=== PATIENT | male | born 1980 | race African-American/Black ===

== ENCOUNTER 2016-07-01 13:46 | Emergency (ER) | payer SELFPAY ==
[~2016-07-01] VITALS: Ht 185.4 cm; Wt 93.8 kg
[~2016-07-01 13:46] MED LIST: AFRIN,GENASAL D15 ML BOTH NARES; AMOXICILLIN500 M1 PO; AMOXICILLIN500 MG PO; CLEOCIN300 MG PO; MOTRIN800 MG PO; MUCUS ER600 MG PO; NAPROSYN500 MG PO; NORCO 5/3251 TABLET PO; PEPCID20 MG PO; PERCOCET 5/31 TABLET PO; PREDNISONE20 MG PO; REGLAN10 MG PO; ROBITUSSIN NIG118 ML PO; TYLENOL REGULA325 MG PO
[2016-07-01 13:55] VITALS: BP 117/89
[2016-07-01] MEDS ORDERED: KEFLEX500 MG PO (14:32)
[2016-07-01] MEDS ORDERED: NAPROSYN500 MG PO (14:32)
[2016-07-01] MEDS ORDERED: BACTRIM,SEPT1 TABLET PO (14:32)
== END 2016-07-01 15:12 | disposition home or self-care (01) ==
LOC: EME 13:46
DX: L02.01 Cutaneous abscess of face (principal); F17.210 Nicotine dependence, cigarettes, uncomplicated
CPT/HCPCS: 99281; 99283

== ENCOUNTER 2018-01-23 12:33 | Emergency (ER) | payer SELFPAY ==
[~2018-01-23] VITALS: Ht 185.4 cm; Wt 91.8 kg
[~2018-01-23 12:33] MED LIST changes: +BACTRIM,SEPT1 TABLET PO; +KEFLEX500 MG PO
[2018-01-23] MEDS ORDERED: ULTRAM50 MG PO (14:28)
[2018-01-23] MEDS ORDERED: PEN-VEE K,VEET500 MG PO (14:28)
[2018-01-23] MEDS ORDERED: MOTRIN800 MG PO (14:28)
[2018-01-23 14:46] VITALS: BP 122/73
== END 2018-01-23 14:46 | disposition home or self-care (01) ==
LOC: EME 12:33
DX: K08.89 Other specified disorders of teeth and supporting structures (principal); F17.200 Nicotine dependence, unspecified, uncomplicated
CPT/HCPCS: 99281; 99283

== ENCOUNTER 2018-01-29 14:18 | Emergency (ER) | payer SELFPAY ==
[~2018-01-29] VITALS: Ht 185.4 cm; Wt 89.2 kg
[~2018-01-29 14:18] MED LIST changes: +PEN-VEE K,VEET500 MG PO; +ULTRAM50 MG PO
[2018-01-29 14:47] LABS: HEMATOCRIT 41.4 % (38.0-50.0); HEMOGLOBIN 13.9 G/DL (12.5-16.6); MCH 31.4 PG (29.0-34.0); MCHC 33.6 G/DL (30.0-36.0); MCV 93.5 FL (86-99); PLATELET COUNT 343 K/uL (156-360); RBC DIS.WIDTH-CV 12.5 % (11.8-14.6); RBC DIS.WIDTH-SD 43.1 % (39-53); RED BLOOD COUNT 4.43 M/uL (4.00-5.50); WHITE BLOOD COUNT 6.8 K/uL (4.1-10.2)
[2018-01-29 15:00] LABS: CHLORIDE 104 mEq/L (99-109); POTASSIUM 3.6 mEq/L (3.7-5.4); SODIUM 141 mEq/L (136-147)
[2018-01-29 15:02] LABS: GLUCOSE 89 mg/dL (70-99)
[2018-01-29 15:06] LABS: CREATININE 1.1 mg/dL (0.6-1.3); GFR ESTIMATE (CALCULATED) > 59 mL/min/ (58.99-99999)
[2018-01-29 15:07] LABS: UREA NITROGEN (BUN) 5 mg/dL (9-23)
[2018-01-29 15:09] LABS: TROP-I INTERPRETATION NEGATIVE; TROPONIN-I < 0.01 ng/mL (0.0-0.30)
[2018-01-29 15:25] LABS: ALBUMIN 3.9 g/dL (3.2-4.8)
[2018-01-29 15:28] LABS: TOTAL PROTEIN 7.5 g/dL (6.4-8.3)
[2018-01-29 15:30] LABS: TOTAL BILIRUBIN 0.6 mg/dL (0.0-1.0)
[2018-01-29 15:31] LABS: ALKALINE PHOSPHATASE 53 IU/L (3-129)
[2018-01-29 15:33] LABS: AST (GOT) 16 IU/L (2-34); DIRECT BILIRUBIN 0.2 mg/dL (0.0-0.3)
[2018-01-29 15:34] LABS: ALT (GPT) 18 IU/L (3-49)
[2018-01-29 16:27] LABS: LIPASE 42 U/L (1.0-51.0)
[2018-01-29] MEDS ORDERED: ZOFRAN4 MG PO (17:43)
[2018-01-29] MEDS ORDERED: BENTYL20 MG PO (17:43)
[2018-01-29 18:00] VITALS: BP 131/93
== END 2018-01-29 18:00 | disposition home or self-care (01) ==
LOC: EME 14:18
DX: R10.13 Epigastric pain (principal); R11.2 Nausea with vomiting, unspecified; G43.909 Migraine, unspecified, not intractable, without status migrainosus; F17.200 Nicotine dependence, unspecified, uncomplicated
CPT/HCPCS: 71046; 76705; 80048; 80076; 83690; 84484; 85027; 93005; 99281; 99285